=== PATIENT | female | born 1985 | race Caucasian/White ===

== ENCOUNTER 2021-09-09 13:08 | Outpatient (CLI) | payer BC | END 2021-09-09 13:09 | disposition home or self-care (01) | LOC: CSHMAMMO 13:08 | PROVIDERS: ATTEND Internal Medicine | DX: N64.4 Mastodynia (principal); N63.25 Unspecified lump in the left breast, overlapping quadrants | CPT/HCPCS: 77066; G0279 ==

== ENCOUNTER → 2021-09-17 | Day surgery (SDC) | payer BC | END | disposition home or self-care (01) | LOC: CSHULT 12:59 | PROVIDERS: ATTEND Internal Medicine | PROC: 0H9U3ZX Drainage of Left Breast, Percutaneous Approach, Diagnostic (ICD-10-PCS; principal; 2021-09-17) | DX: N60.32 Fibrosclerosis of left breast (principal) | CPT/HCPCS: 19083; 88305 ==

== ENCOUNTER 2022-01-26 13:09 | Outpatient (CLI) | payer BC | END 2022-01-26 13:10 | disposition home or self-care (01) | LOC: CSHMAMMO 13:09 | PROVIDERS: ATTEND Internal Medicine | DX: D24.2 Benign neoplasm of left breast (principal); N64.4 Mastodynia; N63.0 Unspecified lump in unspecified breast | CPT/HCPCS: G0279 ==